=== PATIENT | male | born 1955 | race Caucasian/White ===

== ENCOUNTER 2022-09-15 10:10 | Outpatient (CLI) | payer MEDICARE, SELFPAY ==
--- NOTE | 2022-09-15 10:26 | XR_ITS ---
WS: [id number] XR foot LT min 3V* [id number] REASON FOR EXAM: PAIN IN LEFT FOOT FINDINGS: In the forefoot there is mild narrowing with subchondral sclerosis of the DIP and PIP joints spaces. No fracture, periosteal reaction, or focal bone lesion is identified in the forefoot. Lisfranc, intertarsal, and Chopart joints are intact and well preserved. No focal bony abnormality of the midfoot. Subtalar joint is intact and well maintained. No significant bone abnormality in the hindfoot. XR/XR foot LT min 3V* [id number] IMPRESSION: Mild changes of osteoarthritis in the left forefoot.
== END 2022-09-15 10:11 | disposition home or self-care (01) ==
LOC: RAD 10:17
PROVIDERS: PCP Nurse Practitioner Family; Visit Provider Nurse Practitioner Family
DX: M19.072 Primary osteoarthritis, left ankle and foot (principal)
CPT/HCPCS: 73630